=== PATIENT | female | born 1985 | race African-American/Black ===

== ENCOUNTER 2017-02-20 19:24 | Emergency (ER) | payer OTHER, SELFPAY | END 2017-02-20 21:09 | disposition home or self-care (01) | LOC: ERS 19:24 | DX: R03.0 Elevated blood-pressure reading, without diagnosis of hypertension (principal); R51 Headache; F17.210 Nicotine dependence, cigarettes, uncomplicated | CPT/HCPCS: 99282 ==

== ENCOUNTER 2017-04-09 23:03 | Emergency (ER) | payer SELFPAY ==
[2017-04-10 00:09] LABS: Bilirubin Negative (Negative); Blood, Urine Trace (Negative); Glucose, Urine (Dipstick) Negative (Negative); Ketone, Urine Negative (Negative); Nitrite Negative (Negative); Protein, Urine (Dipstick) Negative (Neg-Trace); Urobilinogen 0.2 mg/dL (0.2-1.0)
[2017-04-10 00:12] LABS: Bacteria/HPF None Seen HPF (None Seen); Hyaline Casts/LPF 0-3 HYALINE CAST LPF (0-3 Hyaline); RBC/HPF 0-3 HPF (0-3); Squamous Epithelial 0-3 HPF (0-3); WBC/HPF 0-3 HPF (0-3)
== END 2017-04-10 00:56 | disposition home or self-care (01) ==
LOC: ERS 23:03
DX: M54.5 Low back pain (principal); I10 Essential (primary) hypertension; F17.210 Nicotine dependence, cigarettes, uncomplicated
CPT/HCPCS: 81003; 81015; 81025; 99283

== ENCOUNTER 2017-05-02 19:03 | Emergency (ER) | payer SELFPAY | END 2017-05-02 21:24 | disposition home or self-care (01) | LOC: ERS 19:03 | DX: J11.1 Influenza due to unidentified influenza virus with other respiratory manifestations (principal); F17.210 Nicotine dependence, cigarettes, uncomplicated; I10 Essential (primary) hypertension | CPT/HCPCS: 99283 ==

== ENCOUNTER 2018-03-31 15:10 | Observation (INO) | payer SELFPAY ==
[2018-03-31 16:16] LABS: #Basophils 0.1 thou/uL (0.0-0.2); #Lymphocytes 2.4 thou/uL (1.20-3.40); #Monocytes 0.6 thou/uL (0.11-0.59); #Neutrophils 6.3 thou/uL (1.40-6.50); %Basophils 0.8 % (0.0-1.0); %Eosinophils 0.5 % (0.0-10.0); %Lymphocytes 25.1 % (21.0-51.0); %Monocytes 6.6 % (0.0-10.0); Mean Corpuscular HGB CONC 32.9 g/dL (32.0-36.0); Mean Corpuscular Hemoglobin 28.1 pg (27.0-31.0); Mean Corpuscular Volume 85.6 fL (78.0-98.0); Mean Platelet Volume 8.2 fL (7.4-10.4); Platelet Count 280 thou/uL (130-400); RBC Distribution Width 12.2 % (11.5-14.5); Red Blood Cell (RBC) Count 4.64 mill/uL (4.20-5.40); White Blood Cell (WBC) Count 9.4 thou/uL (4.8-10.8)
[2018-03-31 16:37] LABS: ALT (SGPT) 16 U/L (8-55); AST (SGOT) 19 U/L (5-34); Albumin 4.1 g/dL (3.5-5.0); Alkaline Phosphatase 91 U/L (40-150); Anion Gap 13 mmol/L (10-20); BUN (Urea Nitrogen) 12 mg/dL (7.0-18.7); Bilirubin, Total 0.2 mg/dL (0.2-1.2); Calc. Creatinine Clearance 0 mL/min (70-130); Calcium 9.4 mg/dL (7.8-10.44); Carbon Dioxide 23 mmol/L (22-29); Chloride 106 mmol/L (98-107); Estimated GFR-MDRD Greater than 90; Globulin 3.8 g/dL (2.4-3.5); Glucose 131 mg/dL (70-105); Potassium 3.5 mmol/L (3.5-5.1); Protein, Total 7.9 g/dL (6.0-8.3); Sodium 138 mmol/L (136-145)
[2018-03-31 17:00] LABS: CKMB 2.5 ng/mL (0-6.6); Troponin I Less than 0.010 ng/mL (< 0.028)
--- NOTE | 2018-03-31 17:09 | CT ---
CT OF THE BRAIN WITHOUT CONTRAST: Comparison: 12-09-07 History: Fall. Unsure of head injury. Technique: Multiple contiguous axial images were obtained in a CT of the brain without contrast. FINDINGS: The brain is normal in morphology and attenuation without focal lesions or confluent areas of infarct ion. There is no evidence of hydrocephalus, intracranial hemorrhage, or extraaxial fluid collection. The calvarium and overlying soft tissues are unremarkable. The visualized paranasal sinuses and masto id air cells are well aerated. IMPRESSION: No evidence of acute intracranial abnormality. POS: [facility]
[2018-03-31 17:45] LABS: BHCG - Serum Negative (NEGATIVE); Pregs Control Background? CLEAR/WHITE (CLR/WHITE); Pregs Control Bar Appear? YES (CONTROL BAR)
[2018-03-31] MEDS ORDERED: Acetaminophen 325 MG TAB ONE (18:40)
[2018-03-31 19:37] LABS: Acetaminophen Less than 6.0 mcg/mL (10.0-30.0); Alcohol Less than 10 mg/dL (Less than 10); Salicylate Less than 8.0 mg/dL (15.0-30.0)
[2018-03-31] MEDS ORDERED: Sodium Chloride 0.9% 1,000 ML IV SCH (19:43)
[2018-03-31] MEDS ORDERED: Acetaminophen 325 MG TAB PO PRN ×2 (19:43→21:00)
[2018-03-31] MEDS ORDERED: Ondansetron PF 4 MG/2 ML Vial IVP PRN ×2 (19:43→21:00)
[2018-03-31] MEDS ORDERED: Ondansetron ODT 4 MG TAB SL PRN (19:43)
[2018-03-31 19:55] VITALS: BMI 33.0
[2018-03-31 20:22] LABS: Amphetamine Not Detected (NotDetected); Barbiturates Screen Not Detected (NotDetected); Benzodiazepine Screen Not Detected (NotDetected); Cocaine Metabolite Screen Not Detected (NotDetected); Medtox Control Line Valid? VALID (VALID); Medtox Reader # READER 1; Methadone Not Detected (NotDetected); Methamphetamine Not Detected (NotDetected); Opiate Screen Not Detected (NotDetected); Oxycodone Screen Not Detected (NotDetected); Phencyclidine (PCP) Detected (NotDetected); THC/Cannabinoid Screen Not Detected (NotDetected); Tricyclic Screen Not Detected (NotDetected)
[2018-03-31] MEDS ORDERED: Nitroglycerin 0.4 MG TAB (25 Tab Bottle) PO PRN (21:00)
[2018-03-31] MEDS ORDERED: Calcium Carbonate 500 MG ChewTAB PO PRN (21:00)
[2018-03-31] MEDS ORDERED: Ondansetron ODT 4 MG TAB PO PRN (21:00)
[2018-03-31] MEDS ORDERED: hydrALAZINE 20 MG/ML VIAL SLOW IVP PRN (21:08)
[2018-03-31 22:02] LABS: Troponin I Less than 0.010 ng/mL (< 0.028)
[2018-03-31] MEDS: Sodium Chloride 0.9% 1,000 ML IV SCH (22:03)
--- NOTE | 2018-04-01 07:51 | HP ---
PRIMARY CARE PHYSICIAN: [facility]. CHIEF COMPLAINT: Syncopal episode. HISTORY OF PRESENT ILLNESS: The patient is a 32-year-old female who presented to the ER by EMS after a syncopal episode earlier today. History obtained from the patient. She was sitting outside our store and had just completed smoking a cigarette. She felt dizzy and lightheaded prior to losing consciousness. She regained consciousness in the ambulance. She was out for approximately 10 to 15 minutes according to the family. No family is present at this time. No significant injuries reported. She had some headaches over the back of her head when she regained consciousness that responded to Tylenol in the emergency room. She denies any chest pain, palpitations, double vision, blurring of vision, tongue biting, recent immobilization, travel, or similar episodes in the past. Occasionally, she feels heart skipping beats. She denies any previous cardiac workup. She has a strong family history of premature coronary artery disease. PAST MEDICAL HISTORY: Hypertension, untreated. PAST SURGICAL HISTORY: Reviewed with the patient and none. ALLERGIES: NO KNOWN DRUG ALLERGIES. CURRENT HOME MEDICATIONS: Reviewed with the patient and none. SOCIAL HISTORY: The patient currently lives at home with her family. She smokes up to half pack a day on daily basis. She denies any alcohol or drug use. FAMILY HISTORY: Positive for premature coronary artery disease. Mother with OR in her 50s. 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 REVIEW OF SYSTEMS: All other review of systems reviewed and found negative. PHYSICAL EXAMINATION: VITAL SIGNS: Temperature 98.3, respirations 20, pulse rate of 77, blood pressure 132/88 with O2 saturation 98% on room air. GENERAL: A 32-year-old female, in no apparent distress. Denies any headaches. HEENT: Head is atraumatic, normocephalic. Sclerae anicteric. Moist mucous membranes. No oral lesions. NECK: Supple. No JVD. No carotid bruits. LUNGS: Clear to auscultation bilaterally. No wheezing, rales, or rhonchi. HEART: S1 and S2 present. Regular rate and rhythm. No murmurs, rubs, or gallops appreciated. ABDOMEN: Soft, nontender. Bowel sounds present. EXTREMITIES: No edema or calf tenderness. NEUROLOGIC: Grossly nonfocal. Moves all 4 extremities. PSYCHIATRY: Alert, awake, and oriented x3. SKIN: Warm and dry. LYMPH NODES: No palpable lymph nodes in the neck. PERIPHERAL VASCULAR: Radial pulses palpable bilaterally. MUSCULOSKELETAL: No joint swelling or tenderness. LABORATORY DATA: EKG by my review showed sinus rhythm with FL interval of [address] scan of the brain by my review was negative for acute findings. Troponin was negative. Electrolytes within normal range. WBC 9.4 with hemoglobin 13. Creatinine 0.78. LFTs in normal range. test was negative. Alcohol level was negative. Urine drug screen pending at this time. IMPRESSION: 1. Syncopal episode of unclear etiology. 2. Strong family history of heart disease. 3. Obesity with a BMI of 33. 4. Hypertension, untreated. 5. Abnormal EKG. PLAN: The patient will be monitored on the telemetry unit as 23-hour observation. We will obtain serial troponins. Echocardiogram will be obtained. We will consult Cardiology. Fall precautions. Neuro checks. We will keep her n.p.o. past midnight. Orthostatic vitals in a.m. Telemetry monitoring. Plan of care was discussed with the patient in detail. She stated understanding. Job ID: [id number]
[2018-04-01] MEDS: Sodium Chloride 0.9% 1,000 ML IV SCH (09:21)
[2018-04-01 11:47] VITALS: BP 128/72; TEMP 98.2
--- NOTE | 2018-04-02 00:21 | CON ---
DATE OF CONSULTATION: PRIMARY CARE PHYSICIAN: [facility]. EXTRUDER OPERATOR MULTIPLE: Dr. Dumont. REFERRING PHYSICIAN: Dr. Sanchez. REASON FOR CARDIOLOGY CONSULTATION: Syncopal episode. HISTORY OF PRESENT ILLNESS: Ms. Templeton is a 32-year-old female with history of hypertension and current smoker. Yesterday, around 3 o'clock in the afternoon, after she smoked half way of the cigarette, she started feeling lightheadedness and passed out. She was transferred to the [facility] Emergency Department for further recommendation and treatment. The patient denies any chest pain, palpitation, discomfort, shortness of breath, lightheadedness, dizziness, or any other cardiac complaints prior to the episode. She has never seen the primary barrel rifler operator or had any cardiac workup before. She has 6 children that she reports that she never had any problem from the cardiac standpoint at that time. PAST MEDICAL HISTORY: Hypertension during . PAST SURGICAL HISTORY: None. FAMILY HISTORY: The patient's mother has a history of myocardial infarction at the age of 50s. According to the patient, the patient's mother was wearing the monitor due to heart attack. The patient's grandmother due to complication from kidney disease. She also had a history of [place] before. She does not know any family history of her paternal side. Her sister has heart murmur. SOCIAL HISTORY: She is single. She has 6 children, all living well, except one of her daughter has a sickle cell. She works at the [employer]. She smokes 3 cigarettes a day. She denies EtOH or illicit drug abuse. She does not do the exercise. She drinks 1 cup of coffee a day. She drinks at least 10 bottles of water a day. ALLERGIES: SHE HAS NO KNOWN DRUG ALLERGIES. HOME MEDICATIONS: She does not take any medications except Tylenol as needed for headache. REVIEW OF SYSTEMS: Twelve-point review of systems negative unless otherwise mentioned in the HPI. PHYSICAL EXAMINATION: VITAL SIGNS: Orthostatic blood pressure supine 133/73, sitting 133/79, standing 129/78. Temperature 98.2, pulse 95, respiratory rate 16, O2 saturation 98% on room air. GENERAL: Alert and oriented x4, not in acute distress. HEENT: Head, normocephalic and atraumatic. Eyes, extraocular muscle movements are intact. ENT and mouth, oral and nasal mucosa are moist without lesions. NECK: No JVD. Supple. LUNGS/RESPIRATORY: Clear to auscultation bilaterally. No wheezing, rales, or rhonchi noted. CARDIOVASCULAR: Regular rate and rhythm. Normal S1 and S2. There is no S3 or S4. No murmur, heaves, or thrill noted. ABDOMEN: Soft, nontender. No masses palpated. Bowel sounds are present. SKIN: Warm and dry. No lesion, rash, or hematoma noted. MUSCULOSKELETAL: The patient is able to move all extremities. The patient denied any claudication. PSYCHIATRIC: The patient's mood is appropriate. NEUROLOGIC: Alert and oriented x4. Nonfocal. LABORATORY DATA/IMAGING: WBC 9.4, hemoglobin 13.0, hematocrit 39.7, platelets 280. Sodium 138, potassium 3.5, BUN 12, creatinine 0.78, glucose 131. AST 19, ALT 16, CK-MB 2.5. Troponin negative x2. is negative. Patient is positive for phencyclidine, although patient denies any drug abuse. Brain CT scan shows no evidence of acute intracranial abnormalities. Carotid pulses are present without bruit or thrill. 12-point EKG shows normal sinus rhythm without ST-segment changes or T-wave inversion and a heart rate of 67. ASSESSMENT AND PLAN: 1. Syncopal episode. At this moment, no etiologies. The patient's CT brain is normal. The patient's telemetry record shows no any evidence of bradycardia or syncopal episode, any arrhythmia. The patient is going to be discharged with LINQ placement or event monitor for at least 30 days to observe her cardiac activities. When she had the syncopal episodes at 1500, she reports she had some light snack prior to the episode, so I believe she does not have any hypoglycemia episode at that time. 2. Hypertension. The patient's blood pressure is stable at this moment without any blood pressure medicine. ECHOCARDIOGRAM RESULTS: The patient had echocardiogram today, which shows ejection fraction of 60% to 65%, mild tricuspid regurgitation and trace mitral valve regurgitation; which is normal. Most likely, the patient is going to have LINQ placement or event monitor to go home. We would like to continue to monitor this patient. Job ID: [id number]
--- NOTE | 2018-04-02 01:17 | DIS ---
DATE OF ADMISSION: 03/31/2018 DATE OF DISCHARGE: 04/01/2018 PRIMARY CARE PHYSICIAN: Tyree Yang. CONSULTANTS: Dr. Dumont, Cardiology. CODE STATUS: Full. PROCEDURES: 1. The patient had a brain CT, which showed no evidence of acute intracranial abnormality. 2. The patient had an echocardiogram, which is awaiting final read; however, Dr. Dumont took a look at it while she was in the hospital. She will need to follow up with [facility] for the final read. DISCHARGE DIAGNOSES: 1. Syncope. 2. Drug use. REVIEW OF SYSTEMS: The patient was examined this morning. Denies any complaints. Denies any chest pain or shortness of breath. States that she has been getting up and using the bathroom on her own, and denies any dizziness or presyncopal type symptoms. All other systems were reviewed and are negative. PHYSICAL EXAMINATION: VITAL SIGNS: Temperature 98.5, heart rate is 73, respirations 16, blood pressure is 113/73. CONSTITUTIONAL: The patient is alert and oriented to person, place, and time. HEAD: Atraumatic and normocephalic. EYES: Eyelids are normal to inspection. Pupils are equally round and reactive to light. ENT: Mucous membranes are moist. Mouth exam is normal. NECK: Trachea is midline. No neck tenderness. Normal range of motion. RESPIRATORY/CHEST: Breath sounds are clear. No signs of respiratory distress. No wheezing. No rales. CARDIOVASCULAR: Regular rate and rhythm. Heart sounds are normal, S1 and S2. ABDOMEN: Female. Abdomen is nontender. Bowel sounds are heard x4. BACK: Normal range of motion. Normal inspection. EXTREMITIES: Upper extremities, inspection is normal. Range of motion is normal. Sensation and pulses are intact. Lower extremities, inspection is normal. Normal range of motion. Sensation and pulses are intact. No pedal edema is noted. NEUROLOGIC: The patient is oriented to person, place, and time. Cranial nerves are intact. SKIN: Warm, dry, normal in color. HOSPITAL COURSE: The patient was admitted on 03/31/2018 after reports of a syncopal episode earlier today. The patient reports that she was given a cigarette outside a store and felt dizzy and lightheaded after smoking it and lost consciousness. She regained consciousness in the ambulance, reports that she was out for approximately 10 to 15 minutes according to the family. No significant injuries reported from falling. She did have some pain at the back of her head when she regained consciousness, which resolved when given Tylenol in the emergency room. She denies any chest pain, palpitations, double vision, blurring vision, travel, or any similar episodes in the past. Lab work while she was hospitalized was unremarkable. Troponins x2 were undetectable. Toxicology, urine did show positive for PCP. The patient underwent an echocardiogram, which is still awaiting final read. She consulted with Dr. Dumont, who recommended possible Holter monitor and that they would put the request into the company. As she is uninsured, they were unsure whether a monitor could be sent to her. The patient denied any complaints today and desires to go home. The patient was discharged home in stable condition. REFERRALS: The patient is to follow up with [facility] in [place] within the next week. She can follow up with Dr. Dumont if she has another syncopal episode. Job ID: [id number]
--- NOTE | 2018-04-02 07:04 | CON ---
DATE OF CONSULTATION: 04/01/2018 CARDIOLOGY CONSULT NOTE INDICATION FOR CONSULTATION: A 32-year-old female with an episode of syncope. Please refer to the note that is already dictated by the nurse practitioner, Charity Suárez. HISTORY OF PRESENT ILLNESS: This is a very pleasant 32-year-old female, who had been out smoking a cigarette yesterday and she brought her cigarette from somebody else at least that is one of her stories she has not had consistency in her stories with different providers, but she says she was smoking a cigarette and she actually had brought her cigarette from someone else and she said that perhaps it was tainted with PCP as her drug screen is positive for PCP, but perhaps she has been doing drugs otherwise. After smoking the cigarette, she had a jose daniel syncopal episode. She has had no previous episode of syncope in the past. She has had no arrhythmias or syncope. Since she has been here, her ejection fraction is normal, and she has a normal ejection fraction and normal echocardiogram. At this time, she is requesting to go home and she has had no further problems. I have informed her that should she continue to have abnormal drug screens, then she would be at risk of losing her children and also if these are reported at [facility], she hopefully will stop smoking cigarettes and entirely stop using PCP. We have offered her a possible event monitor for 2 weeks and see whether or not she has any significant abnormalities. We will discuss this with the monitoring company to see whether or not they can arrange some kind of payment deal with her in order to that she can get them monitored and they will send it to her house and she can be monitored for 2 weeks. Otherwise at this time, she has no other cardiac problems. She has had no cardiac history in the past. REVIEW OF SYSTEMS: Unremarkable. PHYSICAL EXAMINATION: GENERAL: Reveals a well-developed and well-nourished female, who is in no acute distress. She is alert and oriented. VITAL SIGNS: Stable. Her blood pressure is 128/72, heart rate is 95 and regular, respiratory rate is 16, she is afebrile, and O2 saturations are at 98%. HEENT: Shows head to be normocephalic and atraumatic. NECK: Carotid pulses are present. There are no bruits. There is no JVD. The thyroid is not enlarged. Oral mucosa is pink and moist. CHEST: Clear to auscultation without rales, rhonchi, or wheezing. CARDIOVASCULAR: Reveals a regular rate and rhythm. Normal S1 and S2. There is no S3 or S4. There are no significant murmurs, heaves, thrills, bruits, or rubs. ABDOMEN: Soft and nontender with positive bowel sounds. No organomegaly or masses are noted. Femoral pulses are present. She has obesity. EXTREMITIES: Showed no clubbing or cyanosis. Pedal pulses are present. NEUROLOGIC: She appears to be fully intact. DIAGNOSTIC DATA: Her EKG shows a normal sinus rhythm with no acute changes. She did have decreased R-wave progression in V1 through V3, however, the echocardiogram does not show any evidence of myocardial infarction. She has a normal ejection fraction. PLAN: At this time, I would suggest that she be discharged to home since there are no significant abnormalities other than the jose daniel syncopal episode x1. If she has another repeat episode, then we will need to further investigate, but most likely it was associated with her smoking and the PCP, which was found in the urine. Otherwise as far as her other medical problems are concerned, she appears to be stable and will follow up with us after the monitor if she is able to obtain the monitor based on her income, finances, and if she is able to paying for the monitor. Should she have any further episodes of syncope, she is to return to the emergency room. Job ID: [id number]
== END 2018-04-01 17:23 | disposition home or self-care (01) ==
LOC: ERS 15:10 → 2SW 18:21
PROVIDERS: ADMIT Internal Medicine; ATTEND Internal Medicine
DX: R55 Syncope and collapse (principal); I10 Essential (primary) hypertension; F17.210 Nicotine dependence, cigarettes, uncomplicated; E66.9 Obesity, unspecified; Z68.33 Body mass index [BMI] 33.0-33.9, adult
CPT/HCPCS: 36415; 36416; 70450; 80053; 80306; 80307; 82553; 83735; 84484; 84703; 85025; 93005; 93306; 94760; 96360; 96361; G0378

== ENCOUNTER 2018-06-03 20:04 | Emergency (ER) | payer SELFPAY | END 2018-06-03 21:26 | disposition home or self-care (01) | LOC: ERS 20:04 | DX: J02.9 Acute pharyngitis, unspecified (principal); I10 Essential (primary) hypertension; F17.210 Nicotine dependence, cigarettes, uncomplicated | CPT/HCPCS: 87081; 87430; 99283 ==

== ENCOUNTER 2018-07-20 01:09 | Emergency (ER) | payer SELFPAY ==
[2018-07-20] MEDS ORDERED: Acetaminophen 500 MG TAB ONE (01:45)
[2018-07-20] MEDS ORDERED: Ketorolac Tromethamine 60 MG/2 ML VIAL ONE (03:03)
--- NOTE | 2018-07-20 08:55 | RAD ---
PORTABLE CHEST: DATE: 07/20/2018. PROVIDED CLINICAL HISTORY: ?Cough. FINDINGS: Comparison 10/14/2010. Cardiac and mediastinal silhouette is within normal limits. No focal consolid ation, pleural fluid, or pneumothorax apparent. IMPRESSION: No evidence for an acute cardiopulmonary process. POS: [facility]
== END 2018-07-20 03:35 | disposition home or self-care (01) ==
LOC: ERS 01:09
DX: J06.9 Acute upper respiratory infection, unspecified (principal); I10 Essential (primary) hypertension; Z87.891 Personal history of nicotine dependence
CPT/HCPCS: 71045; 87804; 96372; J1885

== ENCOUNTER 2019-10-28 17:32 | Emergency (ER) | payer OTHER, SELFPAY ==
[2019-10-29 12:26] LABS: SARS-CoV-2 MS2 Positive; SARS-CoV-2 N Gene Negative; SARS-CoV-2 S Gene Negative; SARS-CoV-2 orf1ab Negative
== END 2019-10-28 17:55 | disposition home or self-care (01) ==
LOC: ERS 17:32
DX: R05 Cough (principal); I10 Essential (primary) hypertension; Z20.828 Contact with and (suspected) exposure to other viral communicable diseases
CPT/HCPCS: 87635; 99283; U0003

== ENCOUNTER 2020-07-19 17:18 | Emergency (ER) | payer BC ==
[2020-07-19] MEDS ORDERED: Dexamethasone 4 mg/ml Vial ONE (18:19)
== END 2020-07-19 20:01 | disposition home or self-care (01) ==
LOC: ERS 17:18
DX: J02.9 Acute pharyngitis, unspecified (principal)
CPT/HCPCS: 87081; 87430; 96372; 99283; J1100

== ENCOUNTER 2020-09-12 12:52 | Emergency (ER) | payer BC, SELFPAY | END 2020-09-12 14:48 | disposition home or self-care (01) | LOC: ERS 12:52 | DX: J20.9 Acute bronchitis, unspecified (principal) | CPT/HCPCS: 71046 ==